=== PATIENT | male | born 2000 | race Caucasian/White ===

== ENCOUNTER 2025-07-31 15:15 | Emergency (ER) | payer BC ==
[2025-07-31] MEDS: Acetaminophen/HYDROcodone 325-5 MG Tab PO ONE (15:52)
[2025-07-31] MEDS: Take Home: Acetaminophen/HYDROcodone 325-5 MG, 5 Tab Pack PO ONE (15:52)
== END 2025-07-31 15:58 | disposition home or self-care (01) ==
LOC: VM.ED 15:15
DX: S43.401A Unspecified sprain of right shoulder joint, initial encounter (principal); Z88.0 Allergy status to penicillin; W50.0XXA Accidental hit or strike by another person, initial encounter; Y93.61 Activity, american tackle football
CPT/HCPCS: 73030-RT; 99283; A9270-GY